=== PATIENT | female | born 1975 | race Caucasian/White ===

== ENCOUNTER 2025-05-19 18:48 | Emergency (ER) | payer MEDICAID, SELFPAY ==
[2025-05-19 19:24] VITALS: BP 134/56; PULSE 81; RESP 18; TEMP 36.9; O2SAT 99
--- NOTE | 2025-05-19 19:41 | EKG_ITS ---
[facility] Test Date: 2025-05-19 Pat Name: BUDDY CELAYA Department: Room: - Gender: Female Guest Laundry Attendant: : 1975 Requested By: Angelina Pandey Order Number: [id number] Reading MD: Angelina Pandey Measurements Intervals [place] Rate: 76 P: 35 AK: 148 QRS: 7 QRSD: 90 T: 38 QT: 384 QTc: 432 Interpretive Statements SINUS RHYTHM LOW QRS VOLTAGE IN PRECORDIAL LEADS [QRS DEFLECTION < 1.0 mV IN CHEST LEADS] PATTERN CONSISTENT WITH PULMONARY DISEASE Compared to ECG 12/14/2023 08:03:21 Low QRS voltage now present /store/S0/[id number].pdf
--- NOTE | 2025-05-19 19:41 | XR_ITS ---
Examination: Upright PA chest single view Technique: Upright PA chest single view Date and time: May 19, 20252002 hrs. Indications: Chest pain shortness of breath today. Findings: Suspicious for small foci of pneumonia in the right upper lobe Normal heart size No pulmonary edema The osseous structures are intact Impression: Suspicious for early pneumonia right upper lobe
[2025-05-19] MEDS: ALBUTEROL/IPRATROPIUM (Duoneb) RT SOL 3 ML NEBU INH (20:17)
[2025-05-19 20:19] VITALS: PULSE 77; RESP 18; O2SAT 100
[2025-05-19] MEDS: MethylPREDNISolone SOD SUCC 62.5 MG/ML 2ML VIAL 125 MG IM (20:19)
[2025-05-19 21:50] LABS: Basophils # (Auto) 0.1 Thou/mm3 (0.0-0.2); Basophils % (Auto) 1 % (0-2.5); Eosinophils # (Auto) 0.2 Thou/mm3 (0.0-0.5); Eosinophils % (Auto) 3 % (0-10); Hematocrit 25.5 % (36.0-46.0); Immature Granulocytes Auto 0.02 Thou/mm3 (0.00-0.00); Lymphocytes # (Auto) 0.8 Thou/mm3 (1.0-4.8); Lymphocytes % (Auto) 11 % (10-50); Mean Corpuscular HGB Conc 27.8 g/dl (31.0-37.0); Mean Corpuscular Hemoglobin 18.3 pg (25.0-35.0); Mean Corpuscular Volume 66 fL (80-100); Monocytes # (Auto) 0.4 Thou/mm3 (0.0-0.8); Monocytes % (Auto) 5 % (0-12); Neutrophils # (Auto) 6.1 Thou/mm3 (1.8-7.7); Neutrophils % (Auto) 80 % (37-80); Nucleated Red Blood Cell # 0.00 Thou/mm3 (0.00-0.00); Nucleated Red Blood Cell % 0 /100 WBC (0); Platelet Count 454 Thou/mm3 (140-440); RDW Standard Deviation 41.3 fL (36.4-46.3); Red Blood Count 3.87 Miln/mm3 (4.00-5.20); White Blood Count 7.6 Thou/mm3 (3.6-11.0)
[2025-05-19 21:52] LABS: Hemoglobin 7.1 g/dL (12.0-16.0)
[2025-05-19 22:02] LABS: B-Type Natriuretic Peptide 77 pg/mL (0-100)
[2025-05-19 22:14] LABS: Alanine Aminotransferase 10 U/L (10-49); Albumin, Serum 4.1 gm/dL (3.5-5.0); Albumin/Globulin Ratio 1.6 (1.2-2.2); Alkaline Phosphatase 73 U/L (46-116); Anion Gap 10 (7-16); Aspartate Amino Transferase 19 U/L (0-34); BUN/Creatinine Ratio 20 Ratio (12-20); Bilirubin,Total 0.4 mg/dL (0.3-1.2); Blood Urea Nitrogen 12 mg/dL (9-23); Calcium 9.1 mg/dL (8.3-10.6); Calcium (Corrected) 9.1 mg/dL (8.5-10.1); Carbon Dioxide 24.3 mMol/L (20.0-31.0); Chloride 107 mMol/L (98-107); Creatinine (Component) 0.6 mg/dL (0.6-1.3); Estimated Creatinine Clearance 115.7 mL/min (>60); Globulin 2.6 gm/dL (2.3-3.5); Glucose 104 mg/dL (74-106); Osmolality,Calculated 280 (275-295); Potassium 3.6 mMol/L (3.4-5.1); Sodium 141 mMol/L (136-145); Total Protein 6.7 gm/dL (5.7-8.2); Troponin I < 0.002 ng/mL (0.0-0.045); eGFR > 60 See Note
--- NOTE | 2025-05-19 22:50 | EDNOTE_ITS ---
ED Chest Pain RME/HPI General Chief Complaint: Chest Pain Stated Complaint: CHEST IS TIGHT, SOB Time Seen by Provider: 05/19/25 18:54 Arrival date/time: 05/19/25 18:48 This is a case of 50-year-old female with history of asthma severe anemia with history of blood transfusion secondary to gastric bypass history of present illness started 2 days prior to arrival in the emergency room when the patient started to have cough and nasal congestion worsening of the symptoms now with shortness of breath wheezing and pleuritic chest pain thus patient decided to sought consult here in the emergency room denies any fever or chills Limitations: no limitations Related Data Previous Rx's ?Medication ?Instructions ?Recorded albuterol sulfate 90 mcg/actuation 2 puff inhalation Q 6H PRN 04/11/21 aerosol inhaler shortness of breath or wheez ing #6.7 grams ciprofloxacin HCl 500 mg tablet 500 mg PO BID #14 tabs 03/21/22 (Cipro) dicyclomine 20 mg tablet 20 mg PO BID #14 tabs ibuprofen 800 mg tablet 800 mg PO TID PRN pain #30 t abs 08/11/22 albuterol sulfate 90 mcg/actuation 2 inh inhalation Q6 H PRN shortness 12/06/22 aerosol inhaler (Ventolin HFA) of breath or wheezing # 8.5 grams amoxicillin 875 mg-potassium 1 tab PO BID #20 tabs 11/25 clavulanate 125 mg tablet montelukast 10 mg tablet 10 mg PO QDAY #30 tabs 12/06 azithromycin 250 mg tablet See Rx Instructions PO .COM PLEX #6 12/14/23 (Zithromax Z-Terrance) tabs albuterol sulfate 90 mcg/actuation 2 puff inhalation Q 6H PRN 05/19/25 aerosol inhaler (Ventolin HFA) shortness of breath or wheezing #8.5 grams amoxicillin 875 mg-potassium 1 tab PO BID #20 tabs clavulanate 125 mg tablet azithromycin 250 mg tablet See Rx Instructions PO .COM PLEX #6 05/19/25 tabs ferrous sulfate 325 mg (65 mg 325 mg PO TID 30 days #9 0 tabs 05/19/25 iron) tablet,delayed release prednisone 20 mg tablet See Taper PO QDAY 5 days #5 tabs 05/19/25 promethazine-DM 6.25 mg-15 mg/5 mL 5 ml PO Q6H PRN cou gh #118 mL 05/19/25 oral syrup Allergies Allergy/AdvReac Type Severity Reaction Status Date / Time No Known Allergies Allergy Verified 05/19/25 18:50 Review of Systems Review of Systems Systems Reviewed: All systems reviewed, normal except as documented Constitutional Constitutional: Reports system reviewed and no additional complaints, except as documented and Reports as per HPI Cardiovascular Cardiovascular: Reports system reviewed and no additional complaints, except as documented and Reports as per HPI Respiratory Respiratory: Reports system reviewed and no additional complaints, except as documented Gastrointestinal Gastrointestinal: Reports system reviewed and no additional complaints, except as documented and Reports as per HPI Genitourinary Genitourinary: Reports system reviewed and no additional complaints, except as documented and Reports as per HPI Musculoskeletal Musculoskeletal: Reports system reviewed and no additional complaints, except as documented and Reports as per HPI Neurologic Neurologic: Reports system reviewed and no additional complaints, except as documented and Reports as per HPI Past Medical History Past Medical History CARDIAC: Negative Cardiac Disorders or Congestive Heart Failure RESPIRATORY: Positive Asthma; Negative Chronic Obstructive Pulmonary Disease (COPD) GENITOURINARY: Negative Renal Disease ENDOCRINE: Negative Diabetes Mellitus Type 1 or Diabetes Mellitus Type 2 HEMATOLOGIC: Negative Sickle Cell Disease Surgical History SURGICAL: Positive Abdominal Surgery, Gastric Bypass Surgery and Tubal Ligation Social History SMOKING STATUS: Never smoker ED Exam General Limitations: Present no limitations General appearance: Present alert, in no apparent distress and other (Patient is awake alert oriented not in distress nontoxic looking well-hydrated well- nourished) Head Head exam: Present atraumatic, normocephalic and normal inspection Eye Eye exam: Present normal appearance, PERRL and EOMI ENT ENT exam: Present normal exam, normal oropharynx, mucous membranes moist and other (ENT exam is normal and unremarkable) Neck Neck exam: Present normal inspection, full ROM and trachea midline; Absent tenderness, meningismus, lymphadenopathy or thyromegaly Chest Chest inspection: Present normal inspection and symmetric chest wall rise; Absent tenderness Respiratory Respiratory exam: Present normal lung sounds bilaterally and wheezes (Noted wheezing and rhonchi on the right lower lung no crackles no retraction no stridor); Absent respiratory distress, stridor, accessory muscle use or prolonged expiratory phase Cardiovascular Cardiovascular exam: Present regular rate, normal rhythm and normal heart sounds; Absent bradycardia, tachycardia, irregular rhythm, systolic murmur or diastolic murmur Abdominal Exam Abdominal exam: Present soft and normal bowel sounds Extremities Exam Extremities exam: Present normal inspection and full ROM Back Exam Back exam: Present normal inspection and full ROM Neurological Exam Neurological exam: Present alert, oriented X3, CN II-XII intact, normal gait and reflexes normal; Absent motor sensory deficit Psychiatric Psychiatric exam: Present normal affect and normal mood Skin Skin exam: Present warm, dry, intact, normal color and other (Skin turgor no pale no jaundice) Course Quality Measures none Orders Category Date Time Status EKG (ED ONLY) *Do not use* NOW Care 05/19/25 19:42 Completed EKG (ED Only) Stat Exams 05/19/25 19:41 Draft XR chest 1V portable Stat Exams 05/19/25 19:41 Completed BNP [B-Type Natriuretic Peptide] Stat Lab 05/19/25 21:39 Completed CBC Stat Lab 05/19/25 21:39 Completed CMP [Comprehensive Metabolic Panel] Stat Lab 05/19/25 21:39 Completed Troponin I Stat Lab 05/19/25 21:39 Completed Albuterol/Ipratr Rt Angela [Duoneb Rt Angela] Med 05/19/25 19:41 Discontinued 3 ml INH X1 ONE MethylPREDNISolone.* [SoluMEDROL Inj] Med 05/19/25 19:41 Discontinued 125 mg IM X1 ONE cefTRIAXone [Rocephin] 1,000 mg Med 05/19/25 22:45 Discontinued Lidocaine 1% 20 ml [Xylocaine 1% 20 ML] 2.1 ml IM X1 Vital Signs Vital signs: Vital Signs Temperature 98.4 F 05/19/25 19:24 Pulse Rate 81 05/19/25 19:24 Respiratory Rate 18 05/19/25 19:24 Blood Pressure 134/56 H 05/19/25 19:24 Pulse Oximetry (%) 99 05/19/25 19:24 Oxygen Delivery Method Room Air 05/19/25 19:24 Oxygen saturation is 99% in room air Chest Pain MDM Narrative MDM Narrative:: This is a case of 50-year-old female with history of asthma severe anemia with history of blood transfusion secondary to gastric bypass history of present illness started 2 days prior to arrival in the emergency room when the patient started to have cough and nasal congestion worsening of the symptoms now with shortness of breath wheezing and pleuritic chest pain thus patient decided to sought consult here in the emergency room denies any fever or chills physical examination patient is awake alert oriented not in distress nontoxic looking well-hydrated well-nourished vital signs stable BP stable not tachycardic not tachypneic not hypoxic and afebrile patient HEENT exam is normal and unremarkable excellent skin turgor patient is not pale patient lung sounds noted wheezing and rhonchi on the right lower lung no crackles no rales no retraction no stridor heart normal rate regular rhythm no murmur abdomen soft no guarding normal active bowel sound the rest of the physical examination neurological exam is normal and unremarkable patient blood test showed no leukocytosis patient hemoglobin showed 7.1 hematocrit of 25.8 at this point blood transfusion is not needed patient is not actively bleeding patient was prescribed with iron 3 times a day and was advised to return in 2 days for reevaluation of the hemoglobin hematocrit patient also advised to see a industrial design engineer for further evaluation and treatment of anemia no electrolyte imbalance kidney and liver function is normal troponin is negative EKG is normal sinus rhythm BNP is normal chest x-ray showed pneumonia at this point patient was given ceftriaxone IM here in the emergency room and was discharged with Augmentin and azithromycin treatment for adult pneumonia patient was also given Ventolin inhaler as needed for shortness of breath and Promethazine DM for cough patient was also given prednisone and Ventolin inhaler patient will follow-up with PCP in 2 days for reevaluation and to be referred to strategic partnership manager for further evaluation and treatment of chest pain for possible echocardiogram stress test and Holter monitor she needs to also to see a construction project engineer for asthma exacerbation and industrial design engineer for anemia for any recurrence persistent worsening symptoms return precaution in the ER is advised Patient was discharged with comfortable condition walking with stable gait. Patient verbalized no further complains explained diagnosis and answered patient question. Patient is comfortable with the proposed management plan including the need to follow up with his/her primary care physician and any specialist if applicable Discussed patient for any urgent condition or worsening sx, He/She needed to go to emergency room immediately or call 911. Patient acknowledge the responsibility to follow up as instructed and to monitor her/his symptoms. For any persistence of the symptoms for more than 3-5 days return precaution advised. Discussed the result of the test and was given printed discharge instruction Patient data External records reviewed:: [facility] previous records Clinical information provided by:: patient Social determinants that could affect healthcare access:: none Patient has the following chronic illnesses:: None How is presenting disease/condition affected by chronic disease/condition?: no chronic disease Evaluation data The following diagnostics were reviewed and interpreted by me:: lab results, radiology exam(s) and EKG tracing(s) Lab and/or radiology exams considered but not ordered:: Reviewed Interpretation Summary: Reviewed Medications / Prescriptions Medications or Prescriptions considered but not ordered:: Given Medication administrations:: Medication Administration History Discontinued Medications Albuterol/Ipratropium (Albuterol/Ipratropium (Duoneb) Rt Angela 3 Ml Nebu) 3 ml INH X1 ONE Stop: 05/19/25 19:42 Last Admin: 05/19/25 20:17 Dose: 3 ml Documented By: DM Ceftriaxone Sodium 1,000 mg/ (Lidocaine HCl 2.1 ml) 0 mg IM X1 ONE Stop: 05/19/25 22:46 Methylprednisolone Sodium Succinate (Methylprednisolone Sod Succ 62.5 Mg/Ml 2ml Vial) 125 mg IM X1 ONE Stop: 05/19/25 19:42 Last Admin: 05/19/25 20:19 Dose: 125 mg Documented By: OA Given Consultations Consultation(s) initiated? (list below): No Diagnosis Chest Pain Differential Diagnosis: atypical chest pain, costochondritis, chest pain and other (Asthma pneumonia) Most likely diagnosis given after review of the tests above:: Asthma pneumonia chest pain of unknown etiology Admission Indicated Admission indicated?: not indicated Explain why admission is indicated or not indicated:: Not indicated Admission Request Was there a request for admission?: No Disposition Plan Disposition Plan: Discharge Discharge Attestation Discharge Attestation: The patient and all family members were given an opportunity to ask questions and understood the discharge instructions. Discharge instructions specifically effects, indications for sooner follow up or return to the emergency department, and the expected course of current diagnosis. Patient condition: Stable Discharge Plan Plan Patient Disposition: HOME (Self Care) Patient condition on transfer: Stable Prescriptions/Referrals Prescriptions/Med Rec: New amoxicillin-pot clavulanate 875-125 mg tablet 1 tab PO BID Qty: 20 0RF promethazine-DM 6.25-15 mg/5 mL syrup 5 ml PO Q6H PRN (Reason: cough) Qty: 118 0RF azithromycin 250 mg tablet See Rx Instructions .ROUTE .COMPLEX Qty: 6 0RF Rx Instructions: For 250 mg dose pack: take 500 mg today (day 1), then 250 mg for 4 days (days 2-5) prednisone 20 mg tablet See Taper PO QDAY 5 Days Qty: 5 0RF Taper: Prednisone Taper 20 mg DAILY for 2 Days and 0 Hour 10 mg DAILY for 2 Days and 0 Hour 5 mg DAILY for 7 Days and 0 Hour albuterol sulfate [Ventolin HFA] 90 mcg/actuation HFA aerosol inhaler 2 puff inhalation Q6H PRN (Reason: shortness of breath or wheezing) Qty: 8.5 0RF ferrous sulfate 325 mg (65 mg iron) tablet,delayed release (DR/EC) 325 mg PO TID 30 Days Qty: 90 0RF No Action albuterol sulfate 90 mcg/actuation HFA aerosol inhaler 2 puff inhalation Q6H PRN (Reason: shortness of breath or wheezing) Qty: 6.7 0RF dicyclomine 20 mg tablet 20 mg PO BID Qty: 14 0RF ciprofloxacin HCl [Cipro] 500 mg tablet 500 mg PO BID Qty: 14 0RF montelukast 10 mg tablet 10 mg PO QDAY Qty: 30 0RF amoxicillin-pot clavulanate 875-125 mg tablet 1 tab PO BID Qty: 20 0RF albuterol sulfate [Ventolin HFA] 90 mcg/actuation HFA aerosol inhaler 2 inh inhalation Q6H PRN (Reason: shortness of breath or wheezing) Qty: 8.5 0RF ibuprofen 800 mg tablet 800 mg PO TID PRN (Reason: pain) Qty: 30 0RF azithromycin [Zithromax Z-Terrance] 250 mg tablet See Rx Instructions PO .COMPLEX Qty: 6 0RF Rx Instructions: For 250 mg dose pack: take 500 mg today (day 1), then 250 mg for 4 days (days 2-5) Referrals: Vamshi Cuevas MD [Primary Care Provider, Family Practice] - In 1 week Problem List Clinical Impression: Chest pain of unknown etiology, Pneumonia, Asthma exacerbation, Anemia Patient/Caregiver Discharge Instructions Education Materials: Anemia, ED Chest Pain, Uncertain Cause, ED Pneumonia (Adult), Asthma Additional Instructions: It is very important to return in the emergency room in 2 days for reevaluation of your anemia and to repeat hemoglobin and hematocrit and for reevaluation of your pneumonia follow-up with PCP in 2 days for reevaluation for any recurrence persistent worsening symptoms or any emergent concerns such as fever chills vomiting unable to breathe shortness of breath wheezing etc. return to the em ergency room immediately or call 911 take your medication as directed finish the course of antibiotic it is very important to be referred to strategic partnership manager for your chest pain for possible echocardiogram stress test and Holter monitor and construction project engineer for your asthma and need to see a industrial design engineer for your anemia take your medication as directed finish the course of antibiotic keep hydrated Print Language: Armenian Stand Alone Forms: [employer] Award Info., Patient Portal Info Letter PA/MEDICARE COMPLIANCE AUDITOR Supervising Physician PA/MEDICARE COMPLIANCE AUDITOR Supervising Physician: Dr. Otf Vitale
[2025-05-20 03:05] LABS: Path Review Blood Smear Sent to Pathologist
== END 2025-05-19 23:09 | disposition home or self-care (01) ==
PROVIDERS: Nurse Practitioner Family; Emergency Provider Emergency Medicine; PCP Family Medicine
DX: J18.9 Pneumonia, unspecified organism (principal); J45.901 Unspecified asthma with (acute) exacerbation; D64.9 Anemia, unspecified; Z98.84 Bariatric surgery status
CPT/HCPCS: 36415; 71045; 80053; 83880; 84484; 85025; 93005; 94640; 96372; 99283; A9270; J2919

== ENCOUNTER 2025-05-23 17:34 | Emergency (ER) | payer MEDICAID, SELFPAY ==
[2025-05-23] VITALS (8 sets, daily range): BP systolic 128–162; BP diastolic 84–102; PULSE 55–69; RESP 16–19; TEMP 36.4–36.8; O2SAT 96–99; BMI 32.4
--- NOTE | 2025-05-23 18:27 | EDNOTE_ITS ---
ED Recheck Abnl Lab Rx-RME/HPI General Chief Complaint: Recheck/Abnormal Lab/Rx Stated Complaint: LOW HGB Time Seen by Provider: 05/23/25 18:21 Arrival date/time: 05/23/25 17:34 50F with history of asthma and gastric bypass surgery presents to ED due to low outpatient HgB. Patient was here several days ago for different complaint and had HgB of 7.1. Patient denies alcohol use, bloody emesis or black/red stool. Patient has some generalized weakness. Patient states she's had low Hgb issues since her gastric bypass surgery and has needed iron infusions but never any blood transfusions. Limitations: no limitations Related Data Previous Rx's ?Medication ?Instructions ?Recorded albuterol sulfate 90 mcg/actuation 2 puff inhalation Q 6H PRN 04/11/21 aerosol inhaler shortness of breath or wheez ing #6.7 grams ciprofloxacin HCl 500 mg tablet 500 mg PO BID #14 tabs 03/21/22 (Cipro) dicyclomine 20 mg tablet 20 mg PO BID #14 tabs ibuprofen 800 mg tablet 800 mg PO TID PRN pain #30 t abs 08/11/22 albuterol sulfate 90 mcg/actuation 2 inh inhalation Q6 H PRN shortness 12/06/22 aerosol inhaler (Ventolin HFA) of breath or wheezing # 8.5 grams amoxicillin 875 mg-potassium 1 tab PO BID #20 tabs 11/25 clavulanate 125 mg tablet montelukast 10 mg tablet 10 mg PO QDAY #30 tabs 12/06 azithromycin 250 mg tablet See Rx Instructions PO .COM PLEX #6 12/14/23 (Zithromax Z-Terrance) tabs albuterol sulfate 90 mcg/actuation 2 puff inhalation Q 6H PRN 05/19/25 aerosol inhaler (Ventolin HFA) shortness of breath or wheezing #8.5 grams amoxicillin 875 mg-potassium 1 tab PO BID #20 tabs clavulanate 125 mg tablet azithromycin 250 mg tablet See Rx Instructions PO .COM PLEX #6 05/19/25 tabs ferrous sulfate 325 mg (65 mg 325 mg PO TID 30 days #9 0 tabs 05/19/25 iron) tablet,delayed release promethazine-DM 6.25 mg-15 mg/5 mL 5 ml PO Q6H PRN cou gh #118 mL 05/19/25 oral syrup Allergies Allergy/AdvReac Type Severity Reaction Status Date / Time No Known Allergies Allergy Verified 05/19/25 18:50 Review of Systems Review of Systems Systems Reviewed: All systems reviewed, normal except as documented Constitutional Constitutional: Reports as per HPI, Reports fatigue and Reports weakness Neurologic Neurologic: Reports weakness Endocrine Endocrine: Reports fatigue Past Medical History Past Medical History CARDIAC: Negative Cardiac Disorders or Congestive Heart Failure RESPIRATORY: Positive Asthma; Negative Chronic Obstructive Pulmonary Disease (COPD) GENITOURINARY: Negative Renal Disease ENDOCRINE: Negative Diabetes Mellitus Type 1 or Diabetes Mellitus Type 2 HEMATOLOGIC: Negative Sickle Cell Disease Surgical History SURGICAL: Positive Abdominal Surgery, Gastric Bypass Surgery and Tubal Ligation Social History SMOKING STATUS: Never smoker ED Exam General Limitations: Present no limitations General appearance: Present alert and in no apparent distress Head Head exam: Present atraumatic Neck Neck exam: Present normal inspection, full ROM and trachea midline Chest Chest inspection: Present normal inspection and symmetric chest wall rise Extremities Exam Extremities exam: Present normal inspection and full ROM Neurological Exam Neurological exam: Present alert, oriented X3 and CN II-XII intact Psychiatric Psychiatric exam: Present normal affect and normal mood Skin Skin exam: Present warm, dry, intact and pallor Course Quality Measures none Orders Category Date Time Status Insert IV NOW Care 05/23/25 19:11 Completed CBC Stat Lab 05/23/25 18:29 Completed CMP [Comprehensive Metabolic Panel] Stat Lab 05/23/25 18:29 Completed Iron Panel Stat Lab 05/23/25 18:29 Completed Type and Screen Stat Lab 05/23/25 18:29 Completed prbc [Red Blood Cells] Stat Lab 05/23/25 18:29 Completed ferumoxytoL (NON-ESRD) [Feraheme Inj (NON-ESRD)] 1,020 Med 05/23/25 19:30 Discontinued mg Sodium Chloride 0.9% [Ns] 100 ml IV X1 Vital Signs Vital signs: Vital Signs Temperature 97.8 F 05/23/25 18:01 Pulse Rate 69 05/23/25 18:01 Respiratory Rate 17 05/23/25 18:01 Blood Pressure 151/97 H 05/23/25 18:01 Pulse Oximetry (%) 99 05/23/25 18:01 Oxygen Delivery Method Room Air 05/23/25 18:01 O2 at 99% on RA and WNLs Recheck / Abnormal Lab / Rx MDM Narrative MDM Narrative:: 50F with history of asthma and gastric bypass surgery presents to ED due to low outpatient HgB. Patient was here several days ago for different complaint and had HgB of 7.1. Patient denies alcohol use, bloody emesis or black/red stool. Patient has some generalized weakness. Patient states she's had low Hgb issues since her gastric bypass surgery and has needed iron infusions but never any blood transfusions. Physical exam reveals pale-looking individual. Patient is afebrile, calm, and alert. HGB 7.2, which is a bit higher than several days ago. CMP unremarkable. Iron panel low, but not very low. Given her fatigue and through shared decision-making, patient wants iron infusion and 1 unit because she doesn't want to wait the exra 3-4 hours to get 2nd unit. Patient data External records reviewed:: [facility] previous records Clinical information provided by:: patient Social determinants that could affect healthcare access:: none Patient has the following chronic illnesses:: asthma and gastric bypass surgery How is presenting disease/condition affected by chronic disease/condition?: exacerbated by Evaluation data The following diagnostics were reviewed and interpreted by me:: lab results Lab and/or radiology exams considered but not ordered:: ordered Interpretation Summary: above Medications / Prescriptions Medications or Prescriptions considered but not ordered:: ordered Medication administrations:: Medication Administration History Discontinued Medications Ferumoxytol 1,020 mg/ Sodium (Chloride) 134 mls @ 134 mls/hr IV X1 ONE Stop: 05/23/25 20:29 Last Infusion: 05/23/25 20:51 Dose: Infused Documented By: Admin: 05/23/25 19:34 Dose: 134 mls/hr Documented By: CVL above Consultations Consultation(s) initiated? (list below): No Diagnosis Recheck Differential Diagnosis: encounter for medication refill, encounter for wound recheck, encounter for recheck of burn, encounter for removal of sutures, warfarin-induced coagulopathy and other (DAMIEN) Most likely diagnosis given after review of the tests above:: DAMIEN Admission Indicated Admission indicated?: not indicated Admission Request Was there a request for admission?: No Disposition Plan Disposition Plan: Discharge Discharge Attestation Discharge Attestation: The patient and all family members were given an opportunity to ask questions and understood the discharge instructions. Discharge instructions specifically effects, indications for sooner follow up or return to the emergency department, and the expected course of current diagnosis. Patient condition: Stable Discharge Plan Plan Patient Disposition: HOME (Self Care) Discharge Disposition comment: Stable Prescriptions/Referrals Prescriptions/Med Rec: No Action albuterol sulfate 90 mcg/actuation HFA aerosol inhaler 2 puff inhalation Q6H PRN (Reason: shortness of breath or wheezing) Qty: 6.7 0RF dicyclomine 20 mg tablet 20 mg PO BID Qty: 14 0RF ciprofloxacin HCl [Cipro] 500 mg tablet 500 mg PO BID Qty: 14 0RF montelukast 10 mg tablet 10 mg PO QDAY Qty: 30 0RF amoxicillin-pot clavulanate 875-125 mg tablet 1 tab PO BID Qty: 20 0RF albuterol sulfate [Ventolin HFA] 90 mcg/actuation HFA aerosol inhaler 2 inh inhalation Q6H PRN (Reason: shortness of breath or wheezing) Qty: 8.5 0RF amoxicillin-pot clavulanate 875-125 mg tablet 1 tab PO BID Qty: 20 0RF promethazine-DM 6.25-15 mg/5 mL syrup 5 ml PO Q6H PRN (Reason: cough) Qty: 118 0RF azithromycin 250 mg tablet See Rx Instructions .ROUTE .COMPLEX Qty: 6 0RF Rx Instructions: For 250 mg dose pack: take 500 mg today (day 1), then 250 mg for 4 days (days 2-5) albuterol sulfate [Ventolin HFA] 90 mcg/actuation HFA aerosol inhaler 2 puff inhalation Q6H PRN (Reason: shortness of breath or wheezing) Qty: 8.5 0RF ferrous sulfate 325 mg (65 mg iron) tablet,delayed release (DR/EC) 325 mg PO TID 30 Days Qty: 90 0RF ibuprofen 800 mg tablet 800 mg PO TID PRN (Reason: pain) Qty: 30 0RF azithromycin [Zithromax Z-Terrance] 250 mg tablet See Rx Instructions PO .COMPLEX Qty: 6 0RF Rx Instructions: For 250 mg dose pack: take 500 mg today (day 1), then 250 mg for 4 days (days 2-5) Referrals: No Primary/Family,Physician [Primary Care Provider] - In 1 week Problem List Clinical Impression: DAMIEN (iron deficiency anemia) Patient/Caregiver Discharge Instructions Education Materials: ED Anemia, Iron-Deficiency (Adult) Additional Instructions: Please follow-up with PCP within 24-48 hours and return immediately if symptoms worsen. Print Language: Honduran Stand Alone Forms: Patient Portal Info Letter PA/ARTISTS' MODEL Supervising Physician PA/ARTISTS' MODEL Supervising Physician: Dr. Yee
[2025-05-23 18:37] LABS: Basophils # (Auto) 0.0 Thou/mm3 (0.0-0.2); Basophils % (Auto) 1 % (0-2.5); Eosinophils # (Auto) 0.0 Thou/mm3 (0.0-0.5); Eosinophils % (Auto) 0 % (0-10); Hematocrit 25.4 % (36.0-46.0); Immature Granulocytes Auto 0.03 Thou/mm3 (0.00-0.00); Lymphocytes # (Auto) 1.6 Thou/mm3 (1.0-4.8); Lymphocytes % (Auto) 22 % (10-50); Mean Corpuscular HGB Conc 28.3 g/dl (31.0-37.0); Mean Corpuscular Hemoglobin 18.8 pg (25.0-35.0); Mean Corpuscular Volume 66 fL (80-100); Monocytes # (Auto) 0.5 Thou/mm3 (0.0-0.8); Monocytes % (Auto) 7 % (0-12); Neutrophils # (Auto) 5.2 Thou/mm3 (1.8-7.7); Neutrophils % (Auto) 70 % (37-80); Nucleated Red Blood Cell # 0.00 Thou/mm3 (0.00-0.00); Nucleated Red Blood Cell % 0 /100 WBC (0); Platelet Count 374 Thou/mm3 (140-440); RDW Standard Deviation 41.0 fL (36.4-46.3); Red Blood Count 3.84 Miln/mm3 (4.00-5.20); White Blood Count 7.4 Thou/mm3 (3.6-11.0)
[2025-05-23 18:38] LABS: Hemoglobin 7.2 g/dL (12.0-16.0)
[2025-05-23 18:58] LABS: Iron 38 mcg/dL (50-170); Percent Iron Saturation 8 % (20-55); Total Iron Binding Capacity 465 mcg/dL (250-425); Unsaturated Iron Binding 427 (225-295)
[2025-05-23 19:00] LABS: Alanine Aminotransferase 11 U/L (10-49); Albumin, Serum 3.9 gm/dL (3.5-5.0); Albumin/Globulin Ratio 1.5 (1.2-2.2); Alkaline Phosphatase 72 U/L (46-116); Anion Gap 6 (7-16); BUN/Creatinine Ratio 21 Ratio (12-20); Bilirubin,Total 0.3 mg/dL (0.3-1.2); Blood Urea Nitrogen 15 mg/dL (9-23); Calcium 9.0 mg/dL (8.3-10.6); Calcium (Corrected) 9.1 mg/dL (8.5-10.1); Carbon Dioxide 25.7 mMol/L (20.0-31.0); Chloride 109 mMol/L (98-107); Creatinine (Component) 0.7 mg/dL (0.6-1.3); Estimated Creatinine Clearance 103.0 mL/min (>60); Globulin 2.6 gm/dL (2.3-3.5); Glucose 111 mg/dL (74-106); Osmolality,Calculated 283 (275-295); Potassium 4.2 mMol/L (3.4-5.1); Sodium 141 mMol/L (136-145); Total Protein 6.5 gm/dL (5.7-8.2); eGFR > 60 See Note
[2025-05-23 19:01] LABS: Aspartate Amino Transferase < 8 U/L (0-34)
[2025-05-23] MEDS: [UNRECOGNIZED DRUG - REMARK] 134 MG IV (19:34)
== END 2025-05-23 23:40 | disposition home or self-care (01) ==
PROVIDERS: Physician Assistant; Emergency Provider Emergency Medicine
DX: D50.9 Iron deficiency anemia, unspecified (principal)
CPT/HCPCS: 36415; 36430; 80053; 83540; 83550; 85025; 86850; 86900; 86901; 86923; 96365; 99284; J7050; P9016; Q0138

== ENCOUNTER 2025-08-14 17:45 | Emergency (ER) | payer MEDICAID, SELFPAY ==
[2025-08-14 19:31] VITALS: BP 161/90; PULSE 110; RESP 22; TEMP 37.1; O2SAT 95; BMI 33.6
--- NOTE | 2025-08-14 19:37 | PD.ASTHM ---
ED Asthma RME/HPI General Chief Complaint: Shortness of Breath/Dyspnea Stated Complaint: SOB given Z pack today Time Seen by Provider: 08/14/25 19:34 Arrival date/time: 08/14/25 17:45 50F with history of asthma and DAMIEN presents to ED with 2 days of cough and SOB. Patient is currently on Z-terrance. Limitations: no limitations Related Data Previous Rx's ?Medication ?Instructions ?Recorded albuterol sulfate 90 mcg/actuation 2 puff inhalation Q6H PRN 04/11/21 aerosol inhaler shortness of breath or wheezing #6.7 grams ciprofloxacin HCl 500 mg tablet 500 mg PO BID #14 tabs 03/21/22 (Cipro) dicyclomine 20 mg tablet 20 mg PO BID #14 tabs 03/21/22 ibuprofen 800 mg tablet 800 mg PO TID PRN pain #30 tabs 08/11/22 albuterol sulfate 90 mcg/actuation 2 inh inhalation Q6H PRN shortness 12/06/22 aerosol inhaler (Ventolin HFA) of breath or wheezing #8.5 grams amoxicillin 875 mg-potassium 1 tab PO BID #20 tabs 12/06/22 clavulanate 125 mg tablet montelukast 10 mg tablet 10 mg PO QDAY #30 tabs 12/06/22 azithromycin 250 mg tablet See Rx Instructions PO .COMPLEX #6 12/14/23 (Zithromax Z-Terrance) tabs albuterol sulfate 90 mcg/actuation 2 puff inhalation Q6H PRN 05/19/25 aerosol inhaler (Ventolin HFA) shortness of breath or wheezing #8.5 grams amoxicillin 875 mg-potassium 1 tab PO BID #20 tabs 05/19/25 clavulanate 125 mg tablet azithromycin 250 mg tablet See Rx Instructions PO .COMPLEX #6 05/19/25 tabs promethazine-DM 6.25 mg-15 mg/5 mL 5 ml PO Q6H PRN cough #118 mL 05/19/25 oral syrup prednisone 50 mg tablet 50 mg PO QDAY 4 days #4 tabs 08/14/25 Allergies Allergy/AdvReac Type Severity Reaction Status Date / Time No Known Allergies Allergy Verified 08/14/25 17:49 Review of Systems Review of Systems Systems Reviewed: All systems reviewed, normal except as documented Cardiovascular Cardiovascular: Reports dyspnea Respiratory Respiratory: Reports as per HPI, Reports cough and Reports dyspnea Past Medical History Past Medical History CARDIAC: Negative Cardiac Disorders or Congestive Heart Failure RESPIRATORY: Positive Asthma; Negative Chronic Obstructive Pulmonary Disease (COPD) GENITOURINARY: Negative Renal Disease ENDOCRINE: Negative Diabetes Mellitus Type 1 or Diabetes Mellitus Type 2 HEMATOLOGIC: Negative Sickle Cell Disease Surgical History SURGICAL: Positive Abdominal Surgery, Gastric Bypass Surgery and Tubal Ligation Social History SMOKING STATUS: Former smoker ED Exam General Limitations: Present no limitations General appearance: Present alert and in no apparent distress Head Head exam: Present atraumatic Neck Neck exam: Present normal inspection, full ROM and trachea midline Chest Chest inspection: Present normal inspection and symmetric chest wall rise Respiratory Respiratory exam: Present wheezes Neurological Exam Neurological exam: Present alert and oriented X3 Psychiatric Psychiatric exam: Present normal affect and normal mood Skin Skin exam: Present warm, dry, intact and normal color Course Quality Measures none Orders Category Date Time Status Ipratropium [place]anan Rt Angela [Atrovent Rt Angela] Med 08/14/25 19:34 Once 1 mg INH X1 ONE Levalbuterol Rt [Xopenex Rt Angela] Med 08/14/25 19:34 Once 5 mg INH X1 ONE Sodium Chloride Rt Angela 0.9% [NS Rt Angela 0.9%] Med 08/14/25 19:34 Ordered 3 ml INH PRN PRN dexAMETHasone INJ [Decadron Inj] Med 08/14/25 19:34 Once 10 mg PO X1 ONE predniSONE Med 08/14/25 19:34 Once 40 mg PO X1 ONE Vital Signs Vital signs: Vital Signs Temperature 98.8 F 08/14/25 19:31 Pulse Rate 110 H 08/14/25 19:31 Respiratory Rate 22 H 08/14/25 19:31 Blood Pressure 161/90 H 08/14/25 19:31 Pulse Oximetry (%) 95 08/14/25 19:31 Oxygen Delivery Method Room Air 08/14/25 19:31 Asthma MDM Narrative MDM Narrative:: 50F with history of asthma and DAMIEN presents to ED with 2 days of cough and SOB. Patient is currently on Z-terrance. Physical exam reveals wheezing in lungs and restricted WOB. Patient is afebrile, calm, and alert. Meds relieved symptoms. Patient data External records reviewed:: [facility] previous records Clinical information provided by:: patient Social determinants that could affect healthcare access:: none Patient has the following chronic illnesses:: asthma and DAMIEN How is presenting disease/condition affected by chronic disease/condition?: exacerbated by Evaluation data The following diagnostics were reviewed and interpreted by me:: other (specify) (none) Lab and/or radiology exams considered but not ordered:: not ordered Interpretation Summary: n/a Medications / Prescriptions Medications or Prescriptions considered but not ordered:: ordered Medication administrations:: Medication Administration History Dexamethasone Sodium Phosphate (Dexamethasone Sod Phos Inj 10 Mg/Ml Vial) 10 mg PO X1 ONE Stop: 08/14/25 19:35 Ipratropium [place]anan (Ipratropium Rt 0.5 Mg/ 2.5 Ml Nebu) 1 mg INH X1 ONE Stop: 08/14/25 19:35 Levalbuterol HCl (Levalbuterol Rt 1.25 Mg/0.5 Ml Nebu) 5 mg INH X1 ONE Stop: 08/14/25 19:35 Prednisone (Prednisone 20 Mg Tablet) 40 mg PO X1 ONE Stop: 08/14/25 19:35 Sodium Chloride (Sodium Chloride Rt Angela 0.9% 3 Ml Nebu) 3 ml INH PRN PRN PRN Reason: SOLN Stop: 09/13/25 19:33 Consultations Consultation(s) initiated? (list below): No Diagnosis Differential diagnosis asthma: Acute exacerbation, Status asthmaticus, Acute asthmatic bronchitis, PE, Pneumonia, COPD exacerbation, Pulmonary edema systolic, Pulmonary edema dystolic, ARDS, Pneumothorax and Foreign body in trachea Most likely diagnosis given after review of the tests above:: asthma exacerbation Admission Indicated Admission indicated?: not indicated Admission Request Was there a request for admission?: No Disposition Plan Disposition Plan: Discharge Discharge Attestation Discharge Attestation: The patient and all family members were given an opportunity to ask questions and understood the discharge instructions. Discharge instructions specifically effects, indications for sooner follow up or return to the emergency department, and the expected course of current diagnosis. Patient condition: Stable Discharge Plan Plan Patient Disposition: HOME (Self Care) Discharge Disposition comment: Stable Prescriptions/Referrals Prescriptions/Med Rec: New prednisone 50 mg tablet 50 mg PO QDAY 4 Days Qty: 4 0RF No Action albuterol sulfate 90 mcg/actuation HFA aerosol inhaler 2 puff inhalation Q6H PRN (Reason: shortness of breath or wheezing) Qty: 6.7 0RF dicyclomine 20 mg tablet 20 mg PO BID Qty: 14 0RF ciprofloxacin HCl [Cipro] 500 mg tablet 500 mg PO BID Qty: 14 0RF montelukast 10 mg tablet 10 mg PO QDAY Qty: 30 0RF amoxicillin-pot clavulanate 875-125 mg tablet 1 tab PO BID Qty: 20 0RF albuterol sulfate [Ventolin HFA] 90 mcg/actuation HFA aerosol inhaler 2 inh inhalation Q6H PRN (Reason: shortness of breath or wheezing) Qty: 8.5 0RF amoxicillin-pot clavulanate 875-125 mg tablet 1 tab PO BID Qty: 20 0RF promethazine-DM 6.25-15 mg/5 mL syrup 5 ml PO Q6H PRN (Reason: cough) Qty: 118 0RF azithromycin 250 mg tablet See Rx Instructions .ROUTE .COMPLEX Qty: 6 0RF Rx Instructions: For 250 mg dose pack: take 500 mg today (day 1), then 250 mg for 4 days (days 2-5) albuterol sulfate [Ventolin HFA] 90 mcg/actuation HFA aerosol inhaler 2 puff inhalation Q6H PRN (Reason: shortness of breath or wheezing) Qty: 8.5 0RF ibuprofen 800 mg tablet 800 mg PO TID PRN (Reason: pain) Qty: 30 0RF azithromycin [Zithromax Z-Terrance] 250 mg tablet See Rx Instructions PO .COMPLEX Qty: 6 0RF Rx Instructions: For 250 mg dose pack: take 500 mg today (day 1), then 250 mg for 4 days (days 2-5) Referrals: Vamshi Cuevas MD [Primary Care Provider, Family Practice] - In 1 week Problem List Clinical Impression: Asthma exacerbation Patient/Caregiver Discharge Instructions Education Materials: ED Asthma, Acute (Adult) Additional Instructions: Please follow-up with PCP within 24-48 hours and return immediately if symptoms worsen. Print Language: Serbian Stand Alone Forms: Patient Portal Info Letter PA/STAGE RIGGER Supervising Physician CELE/YOKO Supervising Physician: Dr. Frost
[2025-08-14] MEDS: IPRATROPIUM RT 0.5 MG/ 2.5 ML NEBU 1 MG INH (21:01)
[2025-08-14 21:02] VITALS: PULSE 98; RESP 18; O2SAT 97
[2025-08-14] MEDS: SODIUM CHLORIDE RT SOL 0.9% 3 ML NEBU INH (21:02)
[2025-08-14] MEDS: LEVALBUTEROL RT 1.25 MG/0.5 ML NEBU 5 MG INH (21:02)
== END 2025-08-14 22:37 | disposition home or self-care (01) ==
PROVIDERS: Emergency Provider Emergency Medicine; PCP Family Medicine
DX: J45.901 Unspecified asthma with (acute) exacerbation (principal); Z87.891 Personal history of nicotine dependence
CPT/HCPCS: 94644; 99282; J1100; J7512; J7612; J7644